=== PATIENT | female | born 1960 | race Caucasian/White ===

== ENCOUNTER 2018-05-29 18:31 | Emergency (ER) | payer MEDICAID ==
[2018-05-29] MEDS: IBUPROFEN 600 MG TAB PO (19:20)
[2018-05-29] MEDS: predniSONE 20 MG TAB PO (19:21)
== END 2018-05-29 19:57 | disposition home or self-care (01) ==
LOC: FTE 18:31
DX: L42 Pityriasis rosea (principal)
CPT/HCPCS: 99283; J7512